=== PATIENT | male | born 1990 | race Caucasian/White ===

== ENCOUNTER 2023-02-19 23:17 | Emergency (ER) | payer SELFPAY ==
[2023-02-20] MEDS ORDERED: PERM60CR4 TP (01:05)
== END 2023-02-20 00:15 | disposition left against medical advice (07) ==
LOC: ER 23:17
DX: B86 Scabies (principal); Z53.21 Procedure and treatment not carried out due to patient leaving prior to being seen by health care provider
CPT/HCPCS: 99281